=== PATIENT | male | born 1975 ===

== ENCOUNTER 2023-07-28 16:46 | Emergency (ER) | payer OTHER ==
[~2023-07-28] VITALS: Ht 185.4 cm; Wt 86.4 kg
[2023-07-28 16:55] VITALS: BP 136/75; PULSE 85; RESP 16; TEMP 98.3
== END 2023-07-28 21:20 | disposition left against medical advice (07) ==
LOC: EMS 16:48
DX: M79.642 Pain in left hand (principal); Z53.21 Procedure and treatment not carried out due to patient leaving prior to being seen by health care provider
CPT/HCPCS: 99281; Z7502